=== PATIENT | male | born 1995 | race Caucasian/White ===

== ENCOUNTER 2024-04-27 15:50 | Inpatient (IN) | payer OTHER ==
[~2024-04-27] VITALS: Ht 177.8 cm; Wt 84.1 kg
[2024-04-27 17:53] LABS: BASOPHILS % (AUTO) 0.2 % (0.0-2.0); HEMATOCRIT 43.9 % (41-53); HEMOGLOBIN 14.8 g/dL (13.5-17.5); LYMPHOCYTES # (AUTO) 3.1 K/uL (1.0-4.8); LYMPHOCYTES % (AUTO) 35.5 % (22.0-44.0); MEAN CORPUSCULAR HEMOGLOBIN 30.9 pg (26.0-34.0); MEAN CORPUSCULAR HGB CONC 33.7 G/dL (31.0-37.0); MEAN CORPUSCULAR VOLUME 92 fL (80-100); MONOCYTES # (AUTO) 0.8 K/uL (0.1-1.0); MONOCYTES % (AUTO) 8.8 % (2.0-9.0); NEUTROPHILS # (AUTO) 4.7 K/uL (1.8-7.7); NEUTROPHILS % (AUTO) 54.5 % (40.0-70.0); PLATELET COUNT (AUTO) 259 K/uL (150-450); RED BLOOD CELL COUNT(AUTO) 4.77 MIL/uL (4.50-5.90); RED CELL DISTRIBUTION WIDTH 12.3 % (11.5-14.5); WHITE BLOOD COUNT (AUTO) 8.6 K/uL (4.5-11.0)
[2024-04-27 18:02] LABS: ANION GAP 12 mmol/L (8-16); CALCIUM, TOTAL 9.3 mg/dL (8.8-10.5); CARBON DIOXIDE 27 mmol/L (22-29); CHLORIDE 102 mmol/L (98-107); CREATININE 0.89 mg/dL (0.60-1.30); GLOMERULAR FILTR. RATE CALC > 60 mL/min (>60); GLUCOSE,RANDOM 86 mg/dL (70-110); POTASSIUM 4.1 mmol/L (3.5-5.1); SODIUM SERUM 141 mmol/L (136-145); UREA NITROGEN, BLOOD 21 mg/dL (7-18)
[2024-04-27 18:09] LABS: ALANINE AMINOTRANSFERASE 17 U/L (12-78); ALBUMIN 3.7 g/dL (3.4-5.0); ALKALINE PHOSPHATASE 44 U/L (46-116); ASPARTATE AMINOTRANSFERASE 18 U/L (15-37); BILIRUBIN,TOTAL 0.3 mg/dL (0.1-1.0); LIPASE 35 U/L (16-77); TOTAL PROTEIN, SERUM 6.3 g/dL (6.4-8.2)
[2024-04-27] MEDS ORDERED: 0.9% SODIUM CHLORIDE 10 ML SYRINGE IVP ONE (18:13)
[2024-04-27] MEDS ORDERED: IOHEXOL 350 MG/ML 100 ML VIAL ONE (18:13)
[2024-04-27] MEDS ORDERED: SODIUM CHLORIDE 0.9% 0 ML ONE (18:13)
[2024-04-27] MEDS ORDERED: ONDANSETRON HCL 4 MG/2 ML VIAL IVP PRN (19:30)
[2024-04-27] MEDS ORDERED: ACETAMINOPHEN 325 MG TABLET PO PRN (19:30)
[2024-04-27] MEDS: HEPARIN SODIUM,PORCINE 5,000 UNITS/ML VIAL SQ SCH (22:47)
[2024-04-27 23:10] VITALS: BP 128/75; PULSE 87; RESP 18; TEMP 97.9; O2SAT 99
[2024-04-28 05:30] VITALS: BP 110/65; PULSE 68; RESP 19; TEMP 97.7; O2SAT 100
[2024-04-28 08:23] VITALS: BP 109/73; PULSE 53; RESP 18; TEMP 97.8; O2SAT 96
[2024-04-28 09:02] LABS: BASOPHILS % (AUTO) 0.3 % (0.0-2.0); EOSINOPHILS % (AUTO) 2.4 % (1.0-6.0); HEMOGLOBIN 15.2 g/dL (13.5-17.5); LYMPHOCYTES # (AUTO) 3.6 K/uL (1.0-4.8); LYMPHOCYTES % (AUTO) 55.7 % (22.0-44.0); MEAN CORPUSCULAR HEMOGLOBIN 31.1 pg (26.0-34.0); MEAN CORPUSCULAR HGB CONC 33.8 G/dL (31.0-37.0); MEAN CORPUSCULAR VOLUME 92 fL (80-100); MONOCYTES # (AUTO) 0.7 K/uL (0.1-1.0); MONOCYTES % (AUTO) 10.4 % (2.0-9.0); NEUTROPHILS % (AUTO) 31.2 % (40.0-70.0); PLATELET COUNT (AUTO) 249 K/uL (150-450); RED CELL DISTRIBUTION WIDTH 12.3 % (11.5-14.5); WHITE BLOOD COUNT (AUTO) 6.4 K/uL (4.5-11.0)
[2024-04-28 09:17] LABS: ANION GAP 10 mmol/L (8-16); CALCIUM, TOTAL 9.3 mg/dL (8.8-10.5); CARBON DIOXIDE 27 mmol/L (22-29); CHLORIDE 105 mmol/L (98-107); CREATININE 0.92 mg/dL (0.60-1.30); GLOMERULAR FILTR. RATE CALC > 60 mL/min (>60); GLUCOSE,RANDOM 69 mg/dL (70-110); POTASSIUM 4.3 mmol/L (3.5-5.1); SODIUM SERUM 142 mmol/L (136-145); UREA NITROGEN, BLOOD 22 mg/dL (7-18)
[2024-04-28] MEDS: DOCUSATE SODIUM 100 MG CAPSULE PO PRN (09:34)
[2024-04-28] MEDS ORDERED: SODIUM PHOSPHATE,MONO-DIBASIC 133 ML ENEMA PR PRN (12:15)
[2024-04-28] MEDS: POLYETHYLENE GLYCOL 3350 17 GM PACKET PO SCH (13:18)
[2024-04-28] MEDS: BISACODYL 5 MG EC TABLET PO ONE (13:18)
[2024-04-28] MEDS: SENNOSIDES 8.8 MG/5 ML SYRUP UDCUP PO ONE (13:19)
[2024-04-28 16:11] VITALS: BP 106/68; PULSE 55; RESP 18; TEMP 98; O2SAT 97
[2024-04-28 20:00] VITALS: BP 109/72; PULSE 74; RESP 19; TEMP 98.3; O2SAT 98
[2024-04-28] MEDS ORDERED: MIRTAZAPINE 30 MG TABLET PO SCH (21:00)
[2024-04-28] MEDS: DIVALPROEX SODIUM 500 MG DR TABLET PO SCH (21:27)
[2024-04-28] MEDS: RisperiDONE 4 MG TABLET PO SCH (21:27)
[2024-04-28] MEDS: MIRTAZAPINE 15 MG TABLET PO SCH (21:27)
[2024-04-29 06:17] VITALS: BP 97/64; PULSE 69; RESP 18; TEMP 98.5; O2SAT 99
[2024-04-29 07:44] VITALS: BP 126/85; PULSE 70; RESP 20; TEMP 98.8; O2SAT 100
[2024-04-29] MEDS: DEXTROSE 50%-WATER 25 GM/50 ML SYRINGE IVP ONE (13:35)
[2024-04-29 17:56] LABS: GLUCOMETER DEV NAME(LOC) 6S.2; GLUCOSE,POINT OF CARE 106 MG/DL (70-110)
[2024-04-29] MEDS ORDERED: LORazepam 2 MG/ML VIAL IM ONE (19:00)
[2024-04-29] MEDS ORDERED: HALOPERIDOL LACTATE 5 MG/ML VIAL IM ONE (19:00)
[2024-04-29] MEDS ORDERED: DiphenhydrAMINE HCL 50 MG/ML VIAL IM ONE (19:00)
[2024-04-29 19:55] VITALS: BP 114/75; PULSE 74; RESP 20; TEMP 98; O2SAT 94
[2024-04-30] MEDS ORDERED: DIVA-112 PO (08:00)
[2024-04-30] MEDS ORDERED: RISP4TAB94 PO (08:00)
[2024-04-30] MEDS ORDERED: MIRT-89 PO (08:00)
[2024-04-30] MEDS ORDERED: DOCU-385 PO (08:00)
[2024-04-30 08:10] VITALS: BP 116/75; PULSE 57; RESP 19; TEMP 97.5; O2SAT 99
== END 2024-04-30 12:30 | DRG 918 ==
LOC: EMS 15:50 → EDH 19:31 → 6S 22:22
PROVIDERS: ADMIT Internal Medicine; ATTEND Internal Medicine
DX: T43.022A Poisoning by tetracyclic antidepressants, intentional self-harm, initial encounter (principal); F32.9 Major depressive disorder, single episode, unspecified; K59.00 Constipation, unspecified; F25.9 Schizoaffective disorder, unspecified; I10 Essential (primary) hypertension; J45.909 Unspecified asthma, uncomplicated; F41.9 Anxiety disorder, unspecified; Z88.8 Allergy status to other drugs, medicaments and biological substances; Z91.010 Allergy to peanuts; Y92.89 Other specified places as the place of occurrence of the external cause
CPT/HCPCS: 74019; 74176; 80048; 80076; 82962; 83690; 83735; 85025; 86850; 86900; 86901; 93005; 99285; J1644; J7050